=== PATIENT | male | born 1990 | race Caucasian/White ===

== ENCOUNTER 2017-09-10 22:03 | Emergency (ER) | payer BC ==
[2017-09-10 22:17] VITALS: BP 126/85; PULSE 96; TEMP 97.7; BMI 27.3
[2017-09-10] MEDS ORDERED: DIPHTH,PERTUSS(ACELL),TET 0.5 ML DISP.SYRIN IM ONE (22:30)
--- NOTE | 2017-09-10 22:40 | PDOC ---
History of Present Illness - General Chief Complaint: Injury Stated Complaint: FELL,SUSTAINING LACERATIONS Time Seen by Provider: 09/10/17 22:28 History Source: Patient Exam Limitations: No Limitations - History of Present Illness Initial Comments: 09/10/17 22:31 This is a 27-year-old male who comes in status post hitting his head when he fell getting off the train earlier today. Patient was in the city partying and drinking. On the way home patient said he didn't feel well and when he got this. He was feeling nauseous and sweaty and so he tried to get off the train quickly and thinks she may have briefly passed out because the next thing he knew he said he was on the ground on his back. Patient denies history of similar episodes in the past. Patient denies any recent illness. Patient said he also did not have much to eat at the [facility]. Patient denies any complaints at this time other than a scalp laceration. Patient tetanus was approximately 10 years ago. Patient denies any headache, neck pain, blurry vision, dizziness, nausea or any other injuries. PAST MEDICAL HISTORY: no significant history PAST SURGICAL HISTORY: no significant history FAMILY HISTORY: no pertinant history SOCIAL HISTORY: Pt lives with family and is employed. MEDICATIONS: reviewed ALLERGIES: As per nursing notes Review of Systems General: No fevers or chills, no weakness, no weight loss HEENT: No change in vision. No sore throat,. No ear pain CardioVascular: No chest pain or shortness of breath Respiratory:No cough, or wheezing. Gastrointestinal: no nausea, vomitting, diarrhea or constipation, No rectal bleeding Genitourinary: No dysuria, hematuria, or frequency Musculoskeletal: No joint or muscle pain or swelling Neurologic: No headache, vertigo, dizziness or loss of consciousness Psychiatric: nor depression Skin: No rashes or easy bruising Endocrine: no increased thirst or abnormal weight change Allergic: no skin or latex allergy All other systems reviewed and normal GENERAL: The patient is awake, alert, and fully oriented, in no acute distress. HEAD: There is approximately a 3 cm linear laceration posterior occipital area. There is no active bleeding at this time. There is no palpable skull fracture the galea is intact. EYES: Pupils equal, round and reactive to light, extraocular movements intact, sclera anicteric, conjunctiva clear. EXTREMITIES: Normal range of motion, no edema. NEUROLOGICAL: Normal speech, normal gait. grossly intact PSYCH: Normal mood, normal affect. SKIN: Warm, Dry, normal turgor, no rashes or lesions noted. Procedure note: Laceration repair Laceration was anesthetized with 1% lidocaine approximately 3 mL total Laceration was irrigated with normal saline Laceration was closed with a total of 6 savi patient tolerated well Assessment and plan: This is a 27-year-old male who had a dizzy episode and after partying and drinking and fell hitting his head. It is uncertain as to whether or not patient passed out but he may have passed out briefly. Patient sustained a laceration to his posterior occipital area however patient had no complaints of any dizziness nausea or any neurological complaints here in the emergency room. Patient's cervical spine was nontender on palpation or range of motion. Patient' s laceration was cleaned and closed. Patient was discharged home with his parents will keep an eye on him tonight and they were given instructions as to what to her for and to what to bring him back for. 09/10/17 22:48 Past History - Past Medical History Allergies/Adverse Reactions: Allergies Allergy/AdvReac Type Severity Reaction Status Date / Time No Known Allergies Allergy Verified 09/10/17 22:05 Home Medications: Ambulatory Orders NK [No Known Home Medication] 09/10/17 COPD: No - Immunization History Immunization Up to Date: No - Suicide/Smoking/Psychosocial Hx Smoking History: Current some day smoker Have you smoked in the past 12 months: Yes Number of Cigarettes Smoked Daily: 1 Information on smoking cessation initiated: Yes 'Breaking Loose' booklet given: 09/10/17 Hx Alcohol Use: Yes (OCCAS.) Drug/Substance Use Hx: Yes (MARIJUANA) Substance Use Type: None *Physical Exam - Vital Signs Last Vital Signs Temp Pulse Resp BP Pulse Ox 97.7 F 96 H 16 126/85 99 09/10/17 22:12 09/10/17 22:12 09/10/17 22:12 09/10/17 22:12 09/10/17 22:12 *DC/Admit/Observation/Transfer Diagnosis at time of Disposition: Occipital scalp laceration Qualifiers: Encounter type: initial encounter Qualified Code(s): S01.01XA - Laceration without foreign body of scalp, initial encounter - Discharge Dispostion Disposition: HOME Condition at time of disposition: Stable Decision to Admit order: No - Referrals - Patient Instructions Printed Discharge Instructions: DI for Closed Head Injury Additional Instructions: Staple removal in 6-8 days. You can clean the laceration with peroxide for the next couple a days if there is any bleeding or oozing from the laceration. After cleaning with peroxide and reapply some bacitracin to it. Someone should check on you once tonight during the night. You should be arousable to your Normal level of arousability for that time of the night. If you have been vomiting, have had a seizure, or you are unable to be aroused or the person checking on you is concerned that there has been a change in your mental status they should call 911 and have you brought back to the emergency department. You can take Tylenol as needed for pain. Return to the emergency department immediately with ANY new, persistent or worsening symptoms. Continue any medications as previously prescribed by your physician. You should follow up with your primary doctor as soon as possible regarding today's emergency department visit. . Please make sure your doctor reviews the results of your emergency evaluation. Thank you for coming to the Emergency Department today for your care. It was a pleasure to see you today. Please note that your evaluation is INCOMPLETE until you follow-up with your doctor. - Post Discharge Activity
--- NOTE | 2017-09-11 13:24 | EKG ---
Test Reason : Blood Pressure : / mmHG Vent. Rate : 082 BPM Atrial Rate : 082 BPM P-R Int : 138 ms QRS Dur : 096 ms QT Int : 360 ms P-R-T Axes : 047 038 035 degrees QTc Int : 420 ms NORMAL SINUS RHYTHM NORMAL ECG NO PREVIOUS ECGS AVAILABLE Confirmed by MD Fior, Garland ([id number]) on 09/11/2017 1:24:22 PM Referred By: PAL SCOTT Confirmed By:Garland Childress MD
== END 2017-09-10 22:51 | disposition home or self-care (01) ==
LOC: FER 22:03
PROC: 0HQ0XZZ Repair Scalp Skin, External Approach (ICD-10-PCS; principal; 2017-09-10)
PROC: 3E0234Z Introduction of Serum, Toxoid and Vaccine into Muscle, Percutaneous Approach (ICD-10-PCS; 2017-09-10)
DX: S01.01XA Laceration without foreign body of scalp, initial encounter (principal); V81.4XXA Person injured while boarding or alighting from railway train or railway vehicle, initial encounter; Y93.89 Activity, other specified; Y92.522 Railway station as the place of occurrence of the external cause; F17.210 Nicotine dependence, cigarettes, uncomplicated
CPT/HCPCS: 90715; 93005; 99281-25